=== PATIENT | male | born 1960 | race Hispanic/Latino ===

== ENCOUNTER 2017-05-06 01:09 | Emergency (ER) | payer MEDICAID, OTHER ==
[2017-05-06 01:32] VITALS: BMI 20.4
[2017-05-06] MEDS ORDERED: Magnesium Sulfate 2 gm/50 ml 2 GM/50 ML BAG IV STA (01:32)
[2017-05-06 01:34] VITALS: BP 103/76; PULSE 105; TEMP 97.9; O2SAT 97
[2017-05-06] MEDS ORDERED: Magnesium Sulfate 2 gm/50 ml 2 GM/50 ML BAG ONE (01:36)
--- NOTE | 2017-05-06 01:47 | ED PDOC ---
HPI: SOB/CHF/COPD Time Seen by Provider: 05/06/17 01:11 Chief Complaint (Nursing): Respiratory Distress Chief Complaint (Provider): Shortness of Breath History Per: Patient History/Exam Limitations: no limitations Current Symptoms Are (Timing): Still Present Current Respiratory Medications: See Home Med List Additional Complaint(s): 57 year old male presents to ED with complaints of SOB and has a past medical history of COPD. Notes onset while at [facility] and felt no relief after using his inhaler. Of note, patient states he was discharged from [facility] yesterday with a diagnosis of pneumonia PCP: Giovanni Jacinto Past Medical History Reviewed: Historical Data, Nursing Documentation, Vital Signs Vital Signs: Last Vital Signs Temp 97.9 F 05/06/17 01:31 Pulse 105 H 05/06/17 01:31 Resp 26 H 05/06/17 03:30 BP 103/76 05/06/17 01:31 Pulse Ox 97 05/06/17 03:36 - Medical History PMH: Anxiety, Arthritis, Asthma, COPD, Depression, Emphysema Denies: Diabetes, Hepatitis, HIV, HTN, Chronic Kidney Disease, Seizures, Sexually Transmitted Disease - Family History Family History: States: Unknown Family Hx - Living Arrangements Living Arrangements: Other (Homeless) - Immunization History Hx Tetanus Toxoid Vaccination: No Hx Influenza Vaccination: Yes (10/2016) Hx Pneumococcal Vaccination: Yes - Home Medications Home Medications: Ambulatory Orders Medication Instructions Recorded Umeclidinium [place] [Incruse 1 puff IH DAILY 11/21/16 Ellipta] Albuterol HFA [Ventolin HFA 90 1 puff INH RQ4 PRN #1 inhaler 12/01/16 mcg/actuation (8 g)] Montelukast [Singulair] 10 mg PO HS #30 tab 12/01/16 predniSONE [predniSONE Tab] 10 mg PO DAILY #30 tab 12/01/16 Albuterol HFA [Ventolin HFA 90 1 - 2 puff IH Q6 PRN #1 inhaler 05/06/17 mcg/actuation (8 g)] - Allergies Allergies/Adverse Reactions: Allergies Allergy/AdvReac Type Severity Reaction Status Date / Time No Known Allergies Allergy Verified 05/06/17 01:31 Curb-65 Severity Score - CURB-65 Severity Score Confusion: No Curb-65 Score: 0 Percentage 30-day mortality: 0.6% Review of Systems ROS Statement: Except As Marked, All Systems Reviewed And Found Negative Respiratory: Positive for: Shortness of Breath Physical Exam - Reviewed Nursing Documentation Reviewed: Yes Vital Signs Reviewed: Yes - Physical Exam Appears: Positive for: Non-toxic Skin: Positive for: Normal Color, Warm, Dry Cardiovascular/Chest: Positive for: Regular Rate, Rhythm, Tachycardia Respiratory: Positive for: Wheezing (bilateral diffuse wheezing), Respiratory Distress (moderate). Negative for: Normal Breath Sounds Gastrointestinal/Abdominal: Positive for: Soft. Negative for: Tenderness Neurologic/Psych: Positive for: Alert, Oriented. Negative for: Motor/Sensory Deficits - ECG O2 Sat by Pulse Oximetry: 97 (RA) Pulse Ox Interpretation: Normal - Critical Care Total Time (In Min): 30 Medical Decision Making Medical Decision Makin Initial impression: SOB Initial plan: * EKG * Duonebs 9mL INH * Magnesium Sulfate 2gm in 50mL IV * Solumedrol 125mg IVP * Peak flow pre/post Tx * Re-eval Scribe Attestation: Documented by Carleen Rodriguez acting as a scribe for Gold Dorantes MD. DO Scribe Attestation: All medical record entries made by the Scribe were at my direction and personally dictated by me. I have reviewed the chart and agree that the record accurately reflects my personal performance of the history, physical exam, medical decision making, and the department course for this patient. I have also personally directed, reviewed, and agree with the discharge instructions and disposition. Disposition - Clinical Impression Clinical Impression: Moderate COPD (chronic obstructive pulmonary disease) - Disposition Disposition: Routine/Home Disposition Time: 03:30 Condition: IMPROVED Prescriptions: Albuterol HFA [Ventolin HFA 90 mcg/actuation (8 g)] 1 - 2 puff IH Q6 PRN #1 inhaler PRN Reason: Shortness Of Breath Instructions: Chronic Obstructive Pulmonary Disease (COPD), Including Emphysema Forms: [employer] (Korean)
[2017-05-06] MEDS: Albuterol-Ipratrop 3 mg / 0.5 (3 ml) UD INH STA (01:49)
[2017-05-06] MEDS ORDERED: Albuterol-Ipratrop 3 mg / 0.5 (3 ml) UD INH STA ×2 (02:00→02:01)
[2017-05-06 03:31] VITALS: RESP 26
--- NOTE | 2017-05-06 08:56 | CARD ---
APPROVED REPORT EKG Measurement Heart [id number] AL [id number] <Conclusion> Normal sinus rhythm Normal ECG
== END 2017-05-06 03:37 | disposition home or self-care (01) ==
LOC: H.ER 01:09
DX: J44.9 Chronic obstructive pulmonary disease, unspecified (principal); F32.9 Major depressive disorder, single episode, unspecified; F41.9 Anxiety disorder, unspecified
CPT/HCPCS: 93005; 94640; 96374; 99283; J2930

== ENCOUNTER 2017-05-10 11:39 | Emergency (ER) | payer OTHER ==
[2017-05-10 11:40] VITALS: BMI 20.4
[2017-05-10 11:46] VITALS: O2SAT 95
[2017-05-10] MEDS: Sodium Chloride 0.9% 1,000 ML IV STA (12:17)
--- NOTE | 2017-05-10 12:18 | RAD ---
HISTORY: heroin abuse COMPARISON: No prior. FINDINGS: LUNGS: No active pulmonary disease. PLEURA: No significant pleural effusion identified, no pneumothorax apparent. CARDIOVASCULAR: No radiographic findings to suggest acute or significant cardiovascular disease. OSSEOUS STRUCTURES: No significant abnormalities. VISUALIZED UPPER ABDOMEN: Normal. OTHER FINDINGS: None. IMPRESSION: No active disease.
--- NOTE | 2017-05-10 12:19 | ED PDOC ---
HPI: Psych/Substance Abuse Time Seen by Provider: 05/10/17 12:07 Chief Complaint (Nursing): Substance Abuse Chief Complaint (Provider): heroin abuse History Per: Patient, EMS Additional Complaint(s): 57-year-old male with history of heroin abuse presents to emergency department after having been found at care home possibly under the influence of drugs. Patient admits to heroin use upon arrival. He states he snorts heroin, does not shoot heroin IV. Patient offers no complaints upon arrival. PMD: none Past Medical History Reviewed: Historical Data, Nursing Documentation, Vital Signs Vital Signs: Last Vital Signs Temp 98.4 F 05/10/17 11:43 Pulse 135 H 05/10/17 11:43 Resp 20 05/10/17 11:43 BP 96/66 L 05/10/17 11:43 Pulse Ox 95 05/10/17 11:43 - Medical History PMH: Anxiety, Arthritis, Asthma, COPD, Depression - Family History Family History: States: No Known Family Hx - Living Arrangements Living Arrangements: Other (lives in care home) - Social History Current smoker - smoking cessation education provided: Yes Alcohol: None Drugs: Opiates (snorts heroin) - Home Medications Home Medications: Ambulatory Orders Medication Instructions Recorded Umeclidinium [place] [Incruse 1 puff IH DAILY 11/21/16 Ellipta] Albuterol HFA [Ventolin HFA 90 1 puff INH RQ4 PRN #1 inhaler 12/01/16 mcg/actuation (8 g)] Montelukast [Singulair] 10 mg PO HS #30 tab 12/01/16 predniSONE [predniSONE Tab] 10 mg PO DAILY #30 tab 12/01/16 Albuterol HFA [Ventolin HFA 90 1 - 2 puff IH Q6 PRN #1 inhaler 05/06/17 mcg/actuation (8 g)] - Allergies Allergies/Adverse Reactions: Allergies Allergy/AdvReac Type Severity Reaction Status Date / Time No Known Allergies Allergy Verified 05/10/17 11:43 Review of Systems ROS Statement: Except As Marked, All Systems Reviewed And Found Negative Constitutional: Negative for: Fever Cardiovascular: Negative for: Chest Pain Gastrointestinal: Negative for: Nausea, Vomiting Neurological: Negative for: Headache, Dizziness Physical Exam - Reviewed Nursing Documentation Reviewed: Yes Vital Signs Reviewed: Yes - Physical Exam Appears: Positive for: Well, Non-toxic, No Acute Distress Skin: Negative for: Rash Eye Exam: Positive for: EOMI, Other (pinpoint pupils) Cardiovascular/Chest: Positive for: Regular Rate, Rhythm Respiratory: Positive for: Normal Breath Sounds Neurologic/Psych: Positive for: Alert, Oriented - Laboratory Results Result Diagrams: 05/10/17 12:20 05/10/17 12:20 - ECG Interpretation Of ECG: Sinus tach 107 bpm, no acute finding reviewed by PA and ED attending O2 Sat by Pulse Oximetry: 95 Pulse Ox Interpretation: Normal - Other Rad CXR X-Ray: Viewed By Me X-Ray Interpretation: no acute finding Medical Decision Making Medical Decision Makin57 year old with heroin abuse Plan: CXR EKG CBC Trop CMP IVF UDS 1:40 pm: Vital signs markedly improved from time of arrival. Patieint is awake , alert, has steady gait, asking to leave. He is stable for discharge. Disposition - Clinical Impression Clinical Impression: Heroin abuse - Patient ED Disposition Is Patient to be Admitted: No Counseled Patient/Family Regarding: Studies Performed, Diagnosis, Need For Followup - Disposition Referrals: [facility] [Outside] Disposition: Routine/Home Disposition Time: 13:41 Condition: STABLE Instructions: Opioid Use Disorder Forms: [employer] (Danish) Results - Lab Results Lab Results: 05/10/17 05/10/17 05/10/17 13:01 12:20 12:20 WBC 6.6 RBC 4.52 Hgb 13.4 Hct 40.1 MCV 88.7 MCH 29.6 MCHC 33.4 RDW 16.2 H Plt Count 353 MPV 7.2 Neut % (Auto) 65.2 Lymph % (Auto) 22.3 [place] % (Auto) 7.2 Eos % (Auto) 4.2 H Baso % (Auto) 1.1 Neut # (Auto) 4.3 Lymph # (Auto) 1.5 [place] # (Auto) 0.5 Eos # (Auto) 0.3 Baso # (Auto) 0.1 Sodium 144 Potassium 4.2 Chloride 104 Carbon Dioxide 27 Anion Gap 17 BUN 22 H Creatinine 0.9 Est GFR ( Amer) > 60 Est GFR (Non-Af Amer) > 60 Random Glucose 165 H Calcium 9.6 Total Bilirubin 0.4 AST 19 ALT 23 Alkaline Phosphatase 90 Troponin I < 0.0120 Total Protein 7.3 Albumin 3.9 Globulin 3.5 Albumin/Globulin Ratio 1.1 Urine Opiates Screen Positive H Urine Methadone Screen Negative Ur Barbiturates Screen Negative Ur Phencyclidine Scrn Negative Ur Amphetamines Screen Negative U Benzodiazepines Scrn Negative U Oth Cocaine Metabols Negative U Cannabinoids Screen Negative Alcohol, Quantitative < 10
[2017-05-10 12:32] LABS: BASO # 0.1 K/uL (0.0-0.2); BASO % 1.1 % (0.0-2.0); EOS # 0.3 K/uL (0.0-0.7); EOS % 4.2 % (0.0-4.0); HEMOGLOBIN 13.4 g/dL (12.0-18.0); LYMPH # 1.5 K/uL (1.0-4.3); LYMPH % 22.3 % (20.0-40.0); MEAN CELL VOLUME 88.7 fl (80.0-94.0); MEAN CORPUSCULAR HEMOGLOBIN 29.6 pg (27.0-31.0); MEAN CORPUSCULAR HGB CONC 33.4 g/dL (33.0-37.0); MEAN PLATELET VOLUME 7.2 fl (7.2-11.7); MONO # 0.5 K/uL (0.0-0.8); MONO % 7.2 % (0.0-10.0); NEUT # 4.3 K/uL (1.8-7.0); NEUT % 65.2 % (50.0-75.0); NRBC % 0.1 % (0.0-0.0); RBC 4.52 Mil/uL (4.40-5.90); RED CELL DISTRIBUTION WIDTH 16.2 % (11.5-14.5); WHITE BLOOD COUNT 6.6 K/uL (4.8-10.8)
[2017-05-10 12:45] LABS: ALB/GLOB RATIO 1.1 (1.0-2.1); ALBUMIN 3.9 g/dL (3.5-5.0); ALT/SGPT 23 U/L (21-72); AST/SGOT 19 U/L (17-59); BLOOD UREA NITROGEN 22 mg/dl (9-20); CALCIUM 9.6 mg/dL (8.4-10.2); GFR AFRICAN-AMERICAN > 60; GFR NON-AFRICAN AMERICAN > 60
[2017-05-10 13:26] LABS: BENZODIAZEPINES, UR NEGATIVE (NEGATIVE)
[2017-05-10 13:29] LABS: BARBITURATES, UR NEGATIVE (NEGATIVE); OPIATES, UR POSITIVE (NEGATIVE); PHENCYCLIDINE, UR NEGATIVE (NEGATIVE)
[2017-05-10 13:44] VITALS: BP 106/70; PULSE 89; RESP 18; TEMP 98.1
--- NOTE | 2017-05-11 21:31 | CARD ---
APPROVED REPORT EKG Measurement Heart [id number] [place] 128P78 [id number] <Conclusion> Sinus tachycardia Otherwise normal ECG
== END 2017-05-10 13:45 | disposition home or self-care (01) ==
LOC: H.ER 11:39
DX: F11.10 Opioid abuse, uncomplicated (principal); F17.200 Nicotine dependence, unspecified, uncomplicated; Z86.59 Personal history of other mental and behavioral disorders; J44.9 Chronic obstructive pulmonary disease, unspecified
CPT/HCPCS: 71045; 80053; 80320; 80324; 80345; 80346; 80349; 80353; 80358; 80361; 83992; 84484; 85025; 93005; 99283; J7040

== ENCOUNTER 2017-09-09 05:21 | Inpatient (IN) | payer OTHER ==
[2017-09-09 05:22] VITALS: BMI 24.7
[2017-09-09] MEDS ORDERED: Albuterol-Ipratrop 3 mg / 0.5 (3 ml) UD INH STA ×3 (05:50→05:53)
[2017-09-09] MEDS ORDERED: Magnesium Sulfate 2 GM in Sodium Chloride 0.9% 100 ML IV STA (05:53)
--- NOTE | 2017-09-09 06:00 | ED PDOC ---
HPI: SOB/CHF/COPD Time Seen by Provider: 09/09/17 05:30 Chief Complaint (Nursing): Respiratory Distress Chief Complaint (Provider): Shortness of Breath History Per: Patient History/Exam Limitations: no limitations Onset/Duration Of Symptoms: Days (x3) Current Symptoms Are (Timing): Still Present Additional Complaint(s): 57 year old male with a history of substance abuse and COPD presents to the ED with shortness of breath and productive cough onset 3 days. Patient reports he coughs up green phlegm. He took his inhaler with minimal relief. Patient denies any other medical complaints. PMD: Dr. Jacinto Past Medical History Reviewed: Historical Data, Nursing Documentation, Vital Signs Vital Signs: Last Vital Signs Temp 98.3 F 09/10/17 00:28 Pulse 87 09/10/17 00:28 Resp 18 09/10/17 00:28 BP 94/59 L 09/10/17 00:28 Pulse Ox 97 09/10/17 00:28 - Medical History PMH: Anxiety, Arthritis, Asthma, COPD, Depression, Emphysema Denies: Diabetes, Hepatitis, HIV, HTN, Chronic Kidney Disease, Seizures, Sexually Transmitted Disease - Family History Family History: States: Unknown Family Hx - Social History Current smoker - smoking cessation education provided: Yes Ex-Smoker (has not smoked in the last 12 months): No - Immunization History Hx Tetanus Toxoid Vaccination: No Hx Influenza Vaccination: Yes (10/2016) Hx Pneumococcal Vaccination: Yes - Home Medications Home Medications: Ambulatory Orders Medication Instructions Recorded Albuterol HFA [Ventolin HFA 90 2 puff IH [id number] #1 puff 06/24/17 mcg/actuation (8 g)] Montelukast [Singulair] 1 tab PO DAILY 09/09/17 Umeclidinium [place] [Incruse 1 puff INH PRN PRN 09/09/17 Ellipta] - Allergies Allergies/Adverse Reactions: Allergies Allergy/AdvReac Type Severity Reaction Status Date / Time No Known Allergies Allergy Verified 09/09/17 05:38 Review of Systems ROS Statement: Except As Marked, All Systems Reviewed And Found Negative Respiratory: Positive for: Cough (productive), Shortness of Breath Physical Exam - Reviewed Nursing Documentation Reviewed: Yes Vital Signs Reviewed: Yes - Physical Exam Appears: Positive for: Uncomfortable Head Exam: Positive for: ATRAUMATIC, NORMOCEPHALIC Skin: Positive for: Normal Color, Warm, Dry Eye Exam: Positive for: EOMI, Normal appearance, PERRL Cardiovascular/Chest: Positive for: Regular Rate, Rhythm. Negative for: Murmur Respiratory: Positive for: Wheezing (bilateral diffuse), Other (decreased air entry) Gastrointestinal/Abdominal: Positive for: Normal Exam, Soft. Negative for: Tenderness Extremity: Positive for: Normal ROM (upper and lower) Neurologic/Psych: Positive for: Alert, Oriented (x3) - Laboratory Results Result Diagrams: 09/09/17 06:26 09/09/17 06:26 - ECG O2 Sat by Pulse Oximetry: 96 (RA) Pulse Ox Interpretation: Normal - Critical Care Total Time (In Min): 30 Medical Decision Making Medical Decision Making: Time: 5:50 Initial Impression: Productive cough in setting of known COPD Initial Plan: --EKG --labs --Duoneb 3 ml INH --Peak flow pre/post --Blood Culture Time: 7:00 --Patient signed out to Dr. Amador by this provider, pending labs, CXR and reevaluation. Scribe Attestation: Documented by Vida Medina, acting as a scribe for Gold Dorantes MD Provider Scribe Attestation: All medical record entries made by the Scribe were at my direction and personally dictated by me. I have reviewed the chart and agree that the record accurately reflects my personal performance of the history, physical exam, medical decision making, and the department course for this patient. I have also personally directed, reviewed, and agree with the discharge instructions and disposition. Disposition - Clinical Impression Clinical Impression: COPD (chronic obstructive pulmonary disease) with acute bronchitis - Disposition Disposition: Transfer of Care Disposition Time: 07:00 Condition: STABLE Patient Signed Over To: Myra Amador
[2017-09-09] MEDS ORDERED: Magnesium Sulfate 2 gm/50 ml 0 GM/0 ML BAG ONE (06:03)
[2017-09-09 06:56] LABS: BASO % 0.4 % (0.0-2.0); EOS # 0.2 K/uL (0.0-0.7); EOS % 1.4 % (0.0-4.0); HEMOGLOBIN 13.3 g/dL (12.0-18.0); LYMPH # 0.9 K/uL (1.0-4.3); LYMPH % 8.1 % (20.0-40.0); MEAN CELL VOLUME 88.2 fl (80.0-94.0); MEAN CORPUSCULAR HEMOGLOBIN 29.2 pg (27.0-31.0); MEAN CORPUSCULAR HGB CONC 33.1 g/dL (33.0-37.0); MEAN PLATELET VOLUME 7.5 fl (7.2-11.7); MONO # 1.1 K/uL (0.0-0.8); MONO % 9.6 % (0.0-10.0); NEUT % 80.5 % (50.0-75.0); PLATELET COUNT 174 K/uL (130-400); RBC 4.54 Mil/uL (4.40-5.90); RED CELL DISTRIBUTION WIDTH 16.2 % (11.5-14.5); WHITE BLOOD COUNT 11.2 K/uL (4.8-10.8)
[2017-09-09 07:06] LABS: ALB/GLOB RATIO 1.1 (1.0-2.1); ALBUMIN 3.8 g/dL (3.5-5.0); ALT/SGPT 25 U/L (21-72); AST/SGOT 19 U/L (17-59); BLOOD UREA NITROGEN 13 mg/dl (9-20); CALCIUM 9.3 mg/dL (8.4-10.2); GFR NON-AFRICAN AMERICAN > 60
--- NOTE | 2017-09-09 07:13 | ED PDOC ---
- Laboratory Results Result Diagrams: 09/09/17 06:26 09/09/17 06:26 - ECG O2 Sat by Pulse Oximetry: 97 (RA) Pulse Ox Interpretation: Normal - Radiology X-Ray: Interpreted by Me X-Ray Interpretation: Infiltrates (? RML) - Progress ED Course And Treament: Zithromax 500 mg IV ordered. Re-evaluation Time: 08:30 Condition: Unchanged Medical Decision Making Medical Decision Making: Time: 0700 -- Patient endorsed to me by Dr. Dorantes, pending labs, CXR and re-evaluation. Scribe Attestation: Documented by Zacarias Ford acting as a scribe for Dr. Myra Amador MD. Provider Scribe Attestation: All medical record entries made by the Scribe were at my direction and personally dictated by me. I have reviewed the chart and agree that the record accurately reflects my personal performance of the history, physical exam, medical decision making, and the department course for this patient. I have also personally directed, reviewed, and agree with the discharge instructions and disposition. Disposition - Clinical Impression Clinical Impression: COPD (chronic obstructive pulmonary disease) with acute bronchitis - POA Present On Arrival: None - Disposition Disposition: Admitted as In-Patient Disposition Time: 08:49 Condition: STABLE Forms: [employer] (Tuvaluan)
[2017-09-09 07:14] LABS: B-TYPE NATRIURETIC PEPTIDE 43.8 pg/ml (0-900)
[2017-09-09] MEDS ORDERED: Azithromycin 500 MG in Sodium Chloride 0.9% 250 ML IV STA (08:40)
[2017-09-09] MEDS ORDERED: Azithromycin 500 MG IV IVPB ONE (08:59)
[2017-09-09] MEDS ORDERED: Patient's Own Med (Umeclidinium Bromide [Incruse Ellipta] 1 PUFF) INH PRN (09:38)
--- NOTE | 2017-09-09 10:19 | RAD ---
Date of service: 09/09/2017 HISTORY: SOB COMPARISON: Chest radiographs 05/31/2017. FINDINGS: LUNGS: Pulmonary volume appears somewhat diminished although COPD related hyperlucency again appreciated bilaterally. No airspace disease appreciated bilaterally otherwise. PLEURA: No significant pleural effusion identified, no pneumothorax apparent. CARDIOVASCULAR: Normal. OSSEOUS STRUCTURES: No significant abnormalities. VISUALIZED UPPER ABDOMEN: Normal. OTHER FINDINGS: None. IMPRESSION: Somewhat diminished pulmonary volume appreciated but no opacified airspace disease identified bilaterally. COPD related hyperlucency reiterated. Stable cardiovascular pattern.
[2017-09-09 10:53] LABS: BASOPHIL 1 % (0-2); LYMPHOCYTE 8 % (20-50); MONOCYTE 9 % (0-10); NEUTROPHIL 82 % (42-75); PLATELET ESTIMATE NORMAL (NORMAL); TOTAL CELLS COUNTED 100
[2017-09-09 10:54] LABS: ANISOCYTOSIS SLIGHT
[2017-09-09 10:55] LABS: OVALOCYTES SLIGHT; TOXIC GRANULATION PRESENT
--- NOTE | 2017-09-09 12:05 | CP.PCM.HP ---
History of Present Illness - History of Present Illness History of Present Illness: HPI: 57 YO male with PMHx of COPD, bronchitis presents to [facility] ED for dyspnea. Pt states that he has been short of breath x 5 days. His symptoms have progressively worsened. Additionally pt endorsing cough, with productive sputum and chills at night. Denies chest pain, palpitations, n/v/d/c and fevers. 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 Denies ETOH. + heroin use and xanex. Pt is homeless lives in group home Allergies: NKDA Present on Admission - Present on Admission Any Indicators Present on Admission: No Review of Systems - Constitutional Constitutional: Chills. absent: Fever - Cardiovascular Cardiovascular: absent: Chest Pain - Respiratory Respiratory: Cough, Dyspnea - Gastrointestinal Gastrointestinal: absent: Abdominal Pain - Genitourinary Genitourinary: absent: Dysuria Past Patient History - Infectious Disease Hx of Infectious Diseases: None - Tetanus Immunizations Tetanus Immunization: Unknown - Past Medical History & Family History Past Medical History?: Yes - Past Social History Smoking Status: Current Some Days Smoker Drugs: Cocaine Home Situation {Lives}: Homeless - CARDIAC Hx Cardiac Disorders: No - PULMONARY Hx Respiratory Disorders: Yes (ASTHMA,COPD) - NEUROLOGICAL Hx Neurological Disorder: No - HEENT Hx HEENT Problems: No - RENAL Hx Chronic Kidney Disease: No - ENDOCRINE/METABOLIC Hx Endocrine Disorders: No - HEMATOLOGICAL/ONCOLOGICAL Hx Blood Disorders: No Hx AIDS: No Hx Human Immunodeficiency Virus (HIV): No - INTEGUMENTARY Hx Dermatological Problems: No - MUSCULOSKELETAL/RHEUMATOLOGICAL Hx Musculoskeletal Disorders: Yes (ARTHRITIS) Hx Falls: No - GASTROINTESTINAL Hx Gastrointestinal Disorders: No - GENITOURINARY/GYNECOLOGICAL Hx Genitourinary Disorders: No - PSYCHIATRIC Hx Psychophysiologic Disorder: Yes (ANX, DEPRESSION) Hx Substance Use: Yes - SURGICAL HISTORY Other/Comment: 2 knee replacement left - - ANESTHESIA Hx Anesthesia Reactions: No Hx Malignant Hyperthermia: No Meds Allergies/Adverse Reactions: Allergies Allergy/AdvReac Type Severity Reaction Status Date / Time No Known Allergies Allergy Verified 09/09/17 05:38 Physical Exam - Constitutional Appears: No Acute Distress, Cachectic - Head Exam Head Exam: ATRAUMATIC (on NC) - Eye Exam Eye Exam: Normal appearance - ENT Exam ENT Exam: Mucous Membranes Moist - Respiratory Exam Respiratory Exam: Decreased Breath Sounds (in the lower lobes), Rhonchi, Wheezes , NORMAL BREATHING PATTERN - Cardiovascular Exam Cardiovascular Exam: REGULAR RHYTHM, +S1, +S2 - GI/Abdominal Exam GI & Abdominal Exam: Normal Bowel Sounds, Soft. absent: Tenderness - Extremities Exam Extremities exam: Positive for: normal inspection - Neurological Exam Neurological exam: Alert Results - Vital Signs Recent Vital Signs: Last Vital Signs Temp 99.1 F 09/09/17 10:57 Pulse 86 09/09/17 10:57 Resp 18 09/09/17 11:14 BP 92/60 L 09/09/17 10:57 Pulse Ox 96 09/09/17 10:57 - Labs Result Diagrams: 09/09/17 06:26 09/09/17 06:26 Labs: Laboratory Results - last 24 hr 09/09/17 09/09/17 09/09/17 06:26 06:26 06:26 WBC 11.2 H RBC 4.54 Hgb 13.3 Hct 40.1 MCV 88.2 MCH 29.2 MCHC 33.1 RDW 16.2 H Plt Count 174 D MPV 7.5 Neut % (Auto) 80.5 H Lymph % (Auto) 8.1 L [place] % (Auto) 9.6 Eos % (Auto) 1.4 Baso % (Auto) 0.4 Neut # (Auto) 9.0 H Lymph # (Auto) 0.9 L [place] # (Auto) 1.1 H Eos # (Auto) 0.2 Baso # (Auto) 0.0 Neutrophils % (Manual) 82 H Lymphocytes % (Manual) 8 L Monocytes % (Manual) 9 Basophils % (Manual) 1 Toxic Granulation Present Platelet Estimate Normal Anisocytosis (manual) Slight Ovalocytes Slight Sodium 139 Potassium 4.4 Chloride 103 Carbon Dioxide 26 Anion Gap 14 BUN 13 Creatinine 0.7 L Est GFR ( Amer) > 60 Est GFR (Non-Af Amer) > 60 Random Glucose 106 Lactic Acid 1.9 Calcium 9.3 Total Bilirubin 1.0 AST 19 ALT 25 Alkaline Phosphatase 83 NT-Pro-B Natriuret Pep 43.8 Total Protein 7.2 Albumin 3.8 Globulin 3.4 Albumin/Globulin Ratio 1.1 Assessment & Plan - Assessment and Plan (Free Text) Assessment: Assessment/Plan: 57 YO male with PMHx of COPD, bronchitis is admitted for COPD exacerbation. -VS remain stable -Blood work sig for leukocytosis, remains afebrile -Moderate COPD exacerbation -CXR sig for COPD related hyperlucency, diminished pulmonary volume -EKG no acute ST changes, rate 99 -cont abx -plan as ordered Pt seen and examined with Dr. Castellon
--- NOTE | 2017-09-09 12:28 | CARD ---
APPROVED REPORT Date of service: 09/09/2017 EKG Measurement Heart [id number] [place] 118P74 [id number] <Conclusion> Normal sinus rhythm Normal ECG
[2017-09-09] MEDS: Albuterol-Ipratrop 3 mg / 0.5 (3 ml) UD INH PRN (13:28)
[2017-09-09] MEDS: Albuterol HFA 90 mcg/actuation (8 g) IH SCH ×2 (14:30→20:14)
[2017-09-10] MEDS: Albuterol HFA 90 mcg/actuation (8 g) IH SCH ×2 (02:00→08:44)
[2017-09-10] MEDS: Albuterol-Ipratrop 3 mg / 0.5 (3 ml) UD INH PRN (06:32)
[2017-09-10] MEDS: Azithromycin 500 MG in Sodium Chloride 0.9% 250 ML IVPB SCH (08:37)
[2017-09-10] MEDS: Enoxaparin 40 mg Syringe SC SCH ×2 (08:44→09:00)
[2017-09-10] MEDS: guaiFENesin DM 200 mg-20 mg/10 ml UD PO PRN (08:44)
[2017-09-10] MEDS ORDERED: Sodium Chloride 3% for Inhalation 4 ML VIAL.NEB IH PRN (09:06)
[2017-09-10] MEDS: MethylPREDNISolone 40 mg Vial IVP SCH ×2 (10:56→16:55)
[2017-09-10] MEDS: Pantoprazole 40 mg EC Tab PO SCH (11:09)
--- NOTE | 2017-09-10 12:01 | CP.PCM.PN ---
Subjective - Date & Time of Evaluation Date of Evaluation: 09/10/17 Time of Evaluation: 08:56 - Subjective Subjective: No acute overnight events. Pt states that he continues to cough, chills overnight. Denies chest pain and dyspnea. Objective - Vital Signs/Intake and Output Vital Signs (last 24 hours): Temp Pulse Resp BP Pulse Ox 97.8 F 60 18 92/53 L 97 09/10/17 09:00 09/10/17 09:00 09/10/17 09:00 09/10/17 09:00 09/10/17 09:00 - Medications Medications: Current Medications Acetaminophen (Tylenol 325mg Tab) 650 mg PO Q6 PRN PRN Reason: Pain, Mild (1-3) Albuterol/Ipratropium (Duoneb 3 Mg/0.5 Mg (3 Ml) Ud) 3 ml INH RQ6 CYNTHIA Enoxaparin Sodium (Lovenox) 40 mg SC DAILY CYNTHIA PRN Reason: Protocol Last Admin: 09/10/17 09:00 Dose: Not Given Guaifenesin/Dextromethorphan (Robitussin Dm) 10 ml PO Q6 PRN PRN Reason: Cough Last Admin: 09/10/17 08:44 Dose: 10 ml Home Med (Umeclidinium [place] [Incruse Ellipta]) 1 puff INH PRN PRN PRN Reason: Shortness of Breath Azithromycin 500 mg/ Sodium (Chloride) 250 mls @ 250 mls/hr IVPB DAILY CYNTHIA PRN Reason: Protocol Last Admin: 09/10/17 08:37 Dose: 250 mls/hr Ceftriaxone Sodium 1 gm/ (Sodium Chloride) 100 mls @ 100 mls/hr IVPB DAILY CYNTHIA PRN Reason: Protocol Last Admin: 09/10/17 08:37 Dose: 100 mls/hr Methylprednisolone (Solu-Medrol) 40 mg IVP Q8 CYNTHIA Last Admin: 09/10/17 10:56 Dose: Not Given Montelukast Sodium (Singulair) 10 mg PO HS CYNTHIA Pantoprazole Sodium (Protonix Ec Tab) 40 mg PO DAILY ON LICENSE OF [facility] Last Admin: 09/10/17 11:09 Dose: 40 mg - Labs Labs: 09/09/17 06:26 09/09/17 06:26 - Constitutional Appears: No Acute Distress - Eye Exam Eye Exam: Normal appearance - ENT Exam ENT Exam: Mucous Membranes Moist - Respiratory Exam Respiratory Exam: Wheezes (expiratory ), NORMAL BREATHING PATTERN. absent: Rales - Cardiovascular Exam Cardiovascular Exam: REGULAR RHYTHM, +S1, +S2 - GI/Abdominal Exam GI & Abdominal Exam: Soft, Normal Bowel Sounds. absent: Tenderness - Extremities Exam Extremities Exam: Normal Inspection. absent: Calf Tenderness, Pedal Edema - Neurological Exam Neurological Exam: Alert, Awake, Oriented x3 - Skin Additional comments: Multiple tattoos in body Assessment and Plan (1) COPD (chronic obstructive pulmonary disease) with acute bronchitis Status: Acute (2) Drug abuse Status: Chronic - Assessment and Plan (Free Text) Assessment: Assessment/Plan: 57 YO male with PMHx of COPD, bronchitis and multiple drug abuse is admitted for COPD exacerbation. -VS remain stable, afebrile -Blood work sig for leukocytosis, remains afebrile -Moderate COPD exacerbation -repeat labs in AM -CT chest -cont abx -plan as ordered Pt seen and examined with Dr. Castellon
--- NOTE | 2017-09-10 12:52 | CT ---
Date of service: 09/10/2017 PROCEDURE: CT Chest without contrast HISTORY: sob, r/o pna COMPARISON: Portable chest radiograph 09/09/2017. TECHNIQUE: Contiguous axial images were obtained through the chest without intravenous contrast enhancement. Sagittal and coronal reconstructions were performed. Radiation dose (DLP): 196.39 mGy-cm. This CT exam was performed using one or more of the following dose reduction techniques: Automated exposure control, adjustment of the mA and/or kV according to patient size, and/or use of iterative reconstruction technique. FINDINGS: LUNGS: Trace biapical fibrotic changes are identified with trace bilateral dependent atelectasis and rare reticular changes at the bilateral lower lobes. Minimal atelectasis favored over infiltrate at the lingula base as well. Further, there is no emphysematous change appreciated the ended radiograph appearance of the chest with from 09/09/2017 frontal x-ray may be a function of thin body habitus as COPD is not clearly evident in this CT examination. MEDIASTINUM: Unremarkable thoracic aorta. No aneurysm. Normal sized heart. Main pulmonary artery unremarkable. No vascular congestion. No lymphadenopathy. PLEURA: No pleural fluid. No pneumothorax. BONES: Severe anterior wedge compression fracture T7, moderate at T6 and T8 without prominent retropulsion. No fragmentation appreciated either. Ages of these fractures is indeterminate. UPPER ABDOMEN: Grossly unremarkable. OTHER FINDINGS: None. IMPRESSION: 1. Trace reticular changes seen the bilateral lower lobes which is nonspecific and could reflect limited acute or subacute infectious or inflammatory pneumonitis. Trace atelectasis is favored over pneumonia at the lingula base. Is minimal bibasilar dependent atelectasis as well. 2. COPD pattern not clearly evident at this time. 3. No pleural pericardial effusion or significant lymphadenopathy. 4. Severe T7 and moderate T6 and T8 anterior wedge compression fractures of indeterminate age.
[2017-09-10] MEDS ORDERED: Patient's Own Med (Umeclidinium Bromide [Incruse Ellipta] 1 PUFF) INH PRN (13:37)
[2017-09-10] MEDS: Albuterol-Ipratrop 3 mg / 0.5 (3 ml) UD INH SCH ×2 (15:22→19:36)
[2017-09-10] MEDS: Dextrose 5%/0.45% NS 1,000 ML IV SCH (17:45)
[2017-09-10 18:36] LABS: BARBITURATES, UR NEGATIVE (NEGATIVE); BENZODIAZEPINES, UR NEGATIVE (NEGATIVE); OPIATES, UR POSITIVE (NEGATIVE); PHENCYCLIDINE, UR NEGATIVE (NEGATIVE)
[2017-09-11] MEDS: Albuterol-Ipratrop 3 mg / 0.5 (3 ml) UD INH SCH ×4 (01:15→19:16)
[2017-09-11] MEDS: MethylPREDNISolone 40 mg Vial IVP SCH ×3 (01:45→16:33)
[2017-09-11] MEDS: Dextrose 5%/0.45% NS 1,000 ML IV SCH ×3 (03:19→16:06)
[2017-09-11 07:17] LABS: HEMOGLOBIN 12.2 g/dL (12.0-18.0); MEAN CELL VOLUME 86.9 fl (80.0-94.0); MEAN CORPUSCULAR HEMOGLOBIN 28.8 pg (27.0-31.0); MEAN CORPUSCULAR HGB CONC 33.1 g/dL (33.0-37.0); RBC 4.22 Mil/uL (4.40-5.90); RED CELL DISTRIBUTION WIDTH 16.5 % (11.5-14.5)
[2017-09-11 07:53] LABS: BLOOD UREA NITROGEN 17 mg/dl (9-20); GFR NON-AFRICAN AMERICAN > 60
[2017-09-11] MEDS ORDERED: Patient's Own Med (Umeclidinium Bromide [Incruse Ellipta] 1 PUFF) INH SCH (09:00)
[2017-09-11] MEDS: Enoxaparin 40 mg Syringe SC SCH (09:10)
[2017-09-11] MEDS: Pantoprazole 40 mg EC Tab PO SCH (09:15)
[2017-09-11] MEDS: Azithromycin 500 MG in Sodium Chloride 0.9% 250 ML IVPB SCH (09:16)
[2017-09-11] MEDS: guaiFENesin DM 200 mg-20 mg/10 ml UD PO PRN (09:21)
--- NOTE | 2017-09-11 13:45 | PN ---
DATE: 09/11/2017 SUBJECTIVE: The patient seen and examined. Interim events noted. The patient still complains of coughing, but shortness of breath improved. No chest pain. PHYSICAL EXAMINATION: GENERAL: The patient is in no acute distress. VITAL SIGNS: Stable. HEART: S1 and S2, normal and regular. LUNGS: Good bilateral air exchange, but does have expiration and impaired air exchange consistent with COPD with exacerbation. Also the patient has crepitations, which partially clears with coughing. The patient does bring out yellow tinged sputum. ABDOMEN: Soft and nontender. No organomegaly. No fluid. Bowel sounds are plus and normal. EXTREMITIES: No edema. No calf swelling. No tenderness. No acute ischemia. [employer]: Exam is essentially unchanged. DIAGNOSTIC DATA: Available diagnostic data reviewed. ASSESSMENT AND PLAN: Overall, the patient's general medical condition is stable and improving. Plan as ordered. Krunal Banegas MD
[2017-09-12] MEDS: Albuterol-Ipratrop 3 mg / 0.5 (3 ml) UD INH SCH ×4 (01:00→20:01)
[2017-09-12] MEDS: MethylPREDNISolone 40 mg Vial IVP SCH ×3 (01:17→16:18)
[2017-09-12 07:04] LABS: HEMOGLOBIN 11.8 g/dL (12.0-18.0); MEAN CORPUSCULAR HEMOGLOBIN 29.6 pg (27.0-31.0); MEAN CORPUSCULAR HGB CONC 33.7 g/dL (33.0-37.0); RBC 3.99 Mil/uL (4.40-5.90); RED CELL DISTRIBUTION WIDTH 15.9 % (11.5-14.5); WHITE BLOOD COUNT 12.6 K/uL (4.8-10.8)
[2017-09-12 07:14] LABS: ALBUMIN 3.1 g/dL (3.5-5.0); ALT/SGPT 27 U/L (21-72); AST/SGOT 14 U/L (17-59); BLOOD UREA NITROGEN 13 mg/dl (9-20); GFR NON-AFRICAN AMERICAN > 60
[2017-09-12] MEDS: Enoxaparin 40 mg Syringe SC SCH (08:14)
[2017-09-12] MEDS: Azithromycin 500 MG in Sodium Chloride 0.9% 250 ML IVPB SCH (08:14)
[2017-09-12] MEDS: Pantoprazole 40 mg EC Tab PO SCH (08:14)
[2017-09-12] MEDS: guaiFENesin DM 200 mg-20 mg/10 ml UD PO PRN (08:15)
[2017-09-13] MEDS: Albuterol-Ipratrop 3 mg / 0.5 (3 ml) UD INH SCH ×2 (01:00→08:06)
[2017-09-13] MEDS: MethylPREDNISolone 40 mg Vial IVP SCH ×2 (01:15→09:09)
[2017-09-13 06:35] LABS: MEAN CELL VOLUME 86.3 fl (80.0-94.0); MEAN CORPUSCULAR HEMOGLOBIN 30.1 pg (27.0-31.0); MEAN CORPUSCULAR HGB CONC 34.9 g/dL (33.0-37.0); RBC 4.31 Mil/uL (4.40-5.90); WHITE BLOOD COUNT 10.4 K/uL (4.8-10.8)
[2017-09-13 07:32] LABS: ALBUMIN 3.3 g/dL (3.5-5.0); ALT/SGPT 22 U/L (21-72); AST/SGOT 18 U/L (17-59); BLOOD UREA NITROGEN 17 mg/dl (9-20); CALCIUM 9.4 mg/dL (8.4-10.2); GFR NON-AFRICAN AMERICAN > 60
[2017-09-13 08:07] VITALS: BP 140/80; PULSE 75; RESP 20; TEMP 97.1; O2SAT 98
[2017-09-13] MEDS: Enoxaparin 40 mg Syringe SC SCH (08:55)
[2017-09-13] MEDS: Pantoprazole 40 mg EC Tab PO SCH (09:01)
[2017-09-13] MEDS: Azithromycin 500 MG in Sodium Chloride 0.9% 250 ML IVPB SCH (12:15)
== END 2017-09-13 13:49 | disposition home or self-care (01) | DRG 88 ==
LOC: H.ER 05:21 → H.ERHOLD 08:59 → H.MEDSURG1 10:21
PROVIDERS: ADMIT Family Medicine; ATTEND Family Medicine
DX: J44.0 Chronic obstructive pulmonary disease with (acute) lower respiratory infection (principal); F11.90 Opioid use, unspecified, uncomplicated; J20.9 Acute bronchitis, unspecified; J44.1 Chronic obstructive pulmonary disease with (acute) exacerbation; F17.210 Nicotine dependence, cigarettes, uncomplicated; Z96.652 Presence of left artificial knee joint; Z59.0 Homelessness; F41.9 Anxiety disorder, unspecified